=== PATIENT | male | born 1990 | race Caucasian/White ===

== ENCOUNTER → 2021-04-16 08:45 | Outpatient (CLI) | payer OTHER, MEDICAID, SELFPAY ==
[2021-04-16 20:34] LABS: Add Manual Diff / Slide Review NO; Basophils Absolute Auto 0 /uL (0-100); Basophils Percent Auto 0.7 % (0-2); Eosinophils Absolute Auto 200 /uL (0-450); Eosinophils Percent Auto 4.2 % (2-4); Hematocrit 50.3 % (41-53); Hemoglobin 16.4 g/dL (13.5-17.5); Lymphocytes Absolute Auto 2100 /uL (1100-4500); Lymphocytes Percent Auto 42.6 % (25-40); Mean Corpuscular HGB Conc 32.5 % (30-36); Mean Corpuscular Hemoglobin 28.1 PG (26-34); Mean Corpuscular Volume 86.4 fL (80-100); Monocytes Absolute Auto 500 /uL (0-900); Monocytes Percent Auto 9.5 % (3-14); Neutrophils Absolute Auto 2200 /uL (1500-7000); Platelet Count 310 X10^3/uL (150-400); Red Blood Cell Count 5.82 X10^6/uL (4.5-5.9); Red Cell Distribution Width 13.9 % (11.6-14.8)
[2021-04-16 21:25] LABS: Alanine Aminotransferase 26 IU/L (<50); Albumin 4.5 g/dL (3.5-5.0); Albumin Globulin Ratio 1.7 (1.0-2.8); Alkaline Phosphatase 56 U/L (38-126); Aspartate Aminotransferase 30 IU/L (17-59); BUN Creatinine Ratio 12.7 (6-22); Bilirubin Total 0.4 mg/dL (0.2-1.3); Blood Urea Nitrogen 13 mg/dL (9-20); Calcium 9.2 mg/dL (8.4-10.2); Carbon Dioxide 29 mmol/L (22-32); Chloride 101 mmol/L (98-107); Cholesterol 248 mg/dL (140-199); Estimated Glomerular Filt Rate > 60.0 mL/min (>60); Globulin 2.6 g/dL (1.7-4.1); Glucose 86 mg/dL (70-100); HDL Cholesterol 56 mg/dL (40-60); HEMOLYSIS < 15 (0-50); LDL Cholesterol Calculated 172 mg/dL (<100); Potassium 4.2 mmol/L (3.4-5.1); Sodium 138 mmol/L (137-145); Total Protein 7.1 g/dL (6.3-8.2); Triglycerides 98 mg/dL (35-150)
[2021-04-16 21:55] LABS: TSH w/ Reflex to FT4 2.18 uIU/mL (0.47-4.68)
[2021-04-23 11:26] LABS: Renin Activity 0.586 ng/mL/hr (0.167-5.380)
[2021-04-27 08:46] LABS: Percent Free Testosterone 4.72 % (1.50-4.20); Testosterone Free 8.68 ng/dL (5.00-21.00)
== END ==
PROVIDERS: Family Provider Family Medicine; PCP Physician Assistant Medical
DX: E27.1 Primary adrenocortical insufficiency (principal); E29.1 Testicular hypofunction; I10 Essential (primary) hypertension; F32.9 Major depressive disorder, single episode, unspecified; F41.9 Anxiety disorder, unspecified; E27.49 Other adrenocortical insufficiency
CPT/HCPCS: 80053; 80061; 84244; 84402; 84403; 84443; 85025

== ENCOUNTER → 2022-02-10 09:34 | Outpatient (CLI) | payer OTHER, MEDICAID, SELFPAY ==
[2022-02-10 19:34] LABS: Alanine Aminotransferase 41 IU/L (<50); Albumin 4.4 g/dL (3.5-5.0); Albumin Globulin Ratio 1.7 (1.0-2.8); Alkaline Phosphatase 53 U/L (38-126); Aspartate Aminotransferase 31 IU/L (17-59); BUN Creatinine Ratio 13.5 (6-22); Bilirubin Total 0.5 mg/dL (0.2-1.3); Blood Urea Nitrogen 13 mg/dL (9-20); Calcium 8.8 mg/dL (8.4-10.2); Carbon Dioxide 30 mmol/L (22-32); Chloride 100 mmol/L (98-107); Cholesterol 259 mg/dL (140-199); Estimated Glomerular Filt Rate > 60 mL/min (>60); Globulin 2.6 g/dL (1.7-4.1); Glucose 90 mg/dL (70-100); HDL Cholesterol 63 mg/dL (40-60); HEMOLYSIS < 15 (0-50); LDL Cholesterol Calculated 178 mg/dL (<100); Potassium 4.4 mmol/L (3.4-5.1); Sodium 138 mmol/L (137-145); Triglycerides 89 mg/dL (35-150)
[2022-02-10 20:01] LABS: TSH w/ Reflex to FT4 1.69 uIU/mL (0.47-4.68)
[2022-02-16 09:34] LABS: Percent Free Testosterone 3.43 % (1.50-4.20); Testosterone Free 8.46 ng/dL (5.00-21.00); Testosterone Total 246.7 ng/dL (264.0-916.0)
[2022-02-20 17:20] LABS: Renin Activity 0.489 ng/mL/hr (0.167-5.380)
== END ==
PROVIDERS: Family Provider Family Medicine; PCP Physician Assistant Medical; Visit Provider Physician Assistant Medical
DX: E27.1 Primary adrenocortical insufficiency (principal); E27.49 Other adrenocortical insufficiency; E78.00 Pure hypercholesterolemia, unspecified
CPT/HCPCS: 80053; 80061; 84244; 84402; 84403; 84443

== ENCOUNTER → 2022-10-29 11:29 | Outpatient (CLI) | payer OTHER, MEDICAID, SELFPAY ==
[2022-10-29 20:22] LABS: Alanine Aminotransferase 51 IU/L (<50); Albumin 4.5 g/dL (3.5-5.0); Albumin Globulin Ratio 1.4 (1.0-2.8); Alkaline Phosphatase 59 U/L (38-126); Aspartate Aminotransferase 53 IU/L (17-59); BUN Creatinine Ratio 16.1 (6-22); Bilirubin Total 0.6 mg/dL (0.2-1.3); Blood Urea Nitrogen 15 mg/dL (9-20); Calcium 8.9 mg/dL (8.4-10.2); Carbon Dioxide 30 mmol/L (22-32); Chloride 100 mmol/L (98-107); Cholesterol 282 mg/dL (140-199); Estimated Glomerular Filt Rate > 60 mL/min (>60); Globulin 3.3 g/dL (1.7-4.1); Glucose 77 mg/dL (70-100); HDL Cholesterol 50 mg/dL (40-60); HEMOLYSIS < 15 (0-50); Hematocrit 42.8 % (41-53); LDL Cholesterol Calculated 205 mg/dL (<100); Potassium 4.2 mmol/L (3.4-5.1); Sodium 137 mmol/L (137-145); Total Protein 7.8 g/dL (6.3-8.2); Triglycerides 137 mg/dL (35-150)
[2022-10-29 20:39] LABS: Follicle Stimulating Hormone 1.63 mIU/mL; Free T4, Direct Thyroxine 0.91 ng/dL (0.78-2.19)
[2022-10-29 20:52] LABS: Thyroid Stimulating Hormone 1.24 uIU/mL (0.47-4.68)
[2022-10-31 05:00] LABS: x Labcorp Estim. Avg Glu (eAG) 108 mg/dL (.); x Labcorp Hemoglobin A1c 5.4 % (4.8-5.6)
[2022-10-31 22:32] LABS: Sex Hormone Binding Globulin 13.1 nmol/L (16.5-55.9)
[2022-11-10 20:02] LABS: Renin Activity 1.186 ng/mL/hr (0.167-5.380)
[2022-11-17 08:19] LABS: Testosterone Free 8.63 ng/dL (5.00-21.00); Testosterone Total 233.2 ng/dL (264.0-916.0)
== END ==
PROVIDERS: Family Provider Family Medicine; PCP Physician Assistant Medical; Visit Provider Internal Medicine
DX: E27.1 Primary adrenocortical insufficiency (principal)
CPT/HCPCS: 80053; 80061; 83001; 83002; 83036; 84244; 84270; 84402; 84403; 84439; 84443; 85014

== ENCOUNTER → 2023-08-12 09:25 | Outpatient (CLI) | payer OTHER, MEDICAID, SELFPAY ==
[2023-08-12 19:24] LABS: Add Manual Diff / Slide Review NO; Basophils Absolute Auto 0 /uL (0-100); Basophils Percent Auto 0.6 % (0-2); Eosinophils Absolute Auto 200 /uL (0-450); Eosinophils Percent Auto 3.1 % (2-4); Hematocrit 44.3 % (41-53); Hemoglobin 15.3 g/dL (13.5-17.5); Lymphocytes Absolute Auto 2600 /uL (1100-4500); Lymphocytes Percent Auto 46.4 % (25-40); Mean Corpuscular HGB Conc 34.5 % (30-36); Mean Corpuscular Hemoglobin 28.3 PG (26-34); Monocytes Absolute Auto 600 /uL (0-900); Neutrophils Absolute Auto 2200 /uL (1500-7000); Neutrophils Percent Auto 39.9 % (50-75); Platelet Count 304 X10^3/uL (150-400); Red Cell Distribution Width 13.5 % (11.6-14.8); White Blood Cell Count 5.6 X10^3/uL (4.5-11.0)
[2023-08-12 19:39] LABS: Alanine Aminotransferase 29 IU/L (<50); Albumin 4.5 g/dL (3.5-5.0); Albumin Globulin Ratio 1.6 (1.0-2.8); Alkaline Phosphatase 50 U/L (38-126); Aspartate Aminotransferase 27 IU/L (17-59); BUN Creatinine Ratio 15.9 (6-22); Bilirubin Total 0.5 mg/dL (0.2-1.3); Blood Urea Nitrogen 14 mg/dL (9-20); Calcium 9.6 mg/dL (8.4-10.2); Carbon Dioxide 27 mmol/L (22-32); Chloride 100 mmol/L (98-107); Cholesterol 277 mg/dL (140-199); Estimated Glomerular Filt Rate > 60 mL/min (>60); Globulin 2.8 g/dL (1.7-4.1); Glucose 86 mg/dL (70-100); HDL Cholesterol 52 mg/dL (40-60); HEMOLYSIS < 15 (0-50); LDL Cholesterol Calculated 204 mg/dL (<100); Potassium 4.4 mmol/L (3.4-5.1); Sodium 138 mmol/L (137-145); Total Protein 7.3 g/dL (6.3-8.2); Triglycerides 105 mg/dL (35-150)
[2023-08-12 20:09] LABS: TSH w/ Reflex to FT4 1.39 uIU/mL (0.47-4.68)
== END ==
PROVIDERS: Family Provider Family Medicine; PCP Physician Assistant Medical; Visit Provider Physician Assistant Medical
DX: I10 Essential (primary) hypertension (principal); E78.00 Pure hypercholesterolemia, unspecified; F32.9 Major depressive disorder, single episode, unspecified; F41.9 Anxiety disorder, unspecified
CPT/HCPCS: 80053; 80061; 84443; 85025

== ENCOUNTER → 2023-08-18 10:08 | Outpatient (CLI) | payer OTHER, MEDICAID, SELFPAY ==
[2023-08-18 20:10] LABS: Free T4, Direct Thyroxine 0.94 ng/dL (0.78-2.19)
[2023-08-18 20:12] LABS: Hemoglobin A1C% w Est Avg Glu 5.4 % (4.0-6.0)
[2023-08-18 20:27] LABS: Follicle Stimulating Hormone 1.12 mIU/mL; Luteinizing Hormone 1.68 mIU/mL
[2023-08-20 00:08] LABS: Sex Hormone Binding Globulin 13.3 nmol/L (16.5-55.9)
[2023-08-26 09:51] LABS: Renin Activity 0.719
[2023-08-28 07:10] LABS: Percent Free Testosterone 3.96 % (1.50-4.20); Testosterone Free 8.38 ng/dL (5.00-21.00); Testosterone Total 211.5 ng/dL (264.0-916.0)
== END ==
PROVIDERS: Family Provider Family Medicine; PCP Physician Assistant Medical; Visit Provider Internal Medicine
DX: E29.1 Testicular hypofunction (principal); E27.40 Unspecified adrenocortical insufficiency
CPT/HCPCS: 83001; 83002; 83036; 84244; 84270; 84402; 84403; 84439

== ENCOUNTER → 2024-04-14 09:24 | Outpatient (CLI) | payer OTHER, MEDICAID, SELFPAY ==
[2024-04-14 20:19] LABS: Blood Urea Nitrogen 13 mg/dL (9-20); Calcium 9.3 mg/dL (8.4-10.2); Carbon Dioxide 29 mmol/L (22-32); Chloride 101 mmol/L (98-107); Cholesterol 301 mg/dL (140-199); Estimated Glomerular Filt Rate > 60 mL/min (>60); Glucose 85 mg/dL (70-100); HDL Cholesterol 66 mg/dL (40-60); HEMOLYSIS < 15 (0-50); LDL Cholesterol Calculated 214 mg/dL (<100); Potassium 4.2 mmol/L (3.4-5.1); Sodium 138 mmol/L (137-145); Triglycerides 106 mg/dL (35-150)
== END ==
PROVIDERS: Family Provider Family Medicine; PCP Physician Assistant Medical; Visit Provider Internal Medicine
DX: E27.40 Unspecified adrenocortical insufficiency (principal); E78.5 Hyperlipidemia, unspecified
CPT/HCPCS: 80048; 80061; 84244

== ENCOUNTER → 2024-09-20 09:52 | Outpatient (CLI) | payer OTHER, SELFPAY ==
[2024-09-20 19:18] LABS: Alanine Aminotransferase 81 IU/L (<50); Albumin 4.7 g/dL (3.5-5.0); Alkaline Phosphatase 53 U/L (38-126); Aspartate Aminotransferase 40 IU/L (17-59); BUN Creatinine Ratio 13.2 (6-22); Bilirubin Total 0.5 mg/dL (0.2-1.3); Blood Urea Nitrogen 12 mg/dL (9-20); Calcium 9.3 mg/dL (8.4-10.2); Carbon Dioxide 27 mmol/L (22-32); Chloride 102 mmol/L (98-107); Cholesterol 244 mg/dL (140-199); Estimated Glomerular Filt Rate > 60 mL/min (>60); Globulin 2.3 g/dL (1.7-4.1); Glucose 84 mg/dL (70-100); HDL Cholesterol 69 mg/dL (40-60); HEMOLYSIS < 15 (0-50); LDL Cholesterol Calculated 152 mg/dL (<100); Potassium 4.2 mmol/L (3.4-5.1); Sodium 139 mmol/L (137-145); Triglycerides 113 mg/dL (35-150)
[2024-09-22 04:08] LABS: Sex Hormone Binding Globulin 14.9 nmol/L (16.5-55.9)
== END ==
PROVIDERS: Internal Medicine; Family Provider Family Medicine; PCP Physician Assistant Medical
DX: E27.40 Unspecified adrenocortical insufficiency (principal); E78.2 Mixed hyperlipidemia; E29.1 Testicular hypofunction
CPT/HCPCS: 80053; 80061; 84244; 84270; 84402; 84403

== ENCOUNTER → 2025-07-25 15:06 | Outpatient (CLI) | payer OTHER, SELFPAY ==
[2025-07-25 20:30] LABS: Urine N gonorrhoeae NOT DETECTED
[2025-07-25 20:36] LABS: Urine Chlamydia NOT DETECTED
== END ==
PROVIDERS: Family Provider Family Medicine; PCP Physician Assistant Medical; Visit Provider Physician Assistant Medical
DX: N34.2 Other urethritis (principal)
CPT/HCPCS: 87070; 87102; 87205; 87491; 87591